=== PATIENT | female | born 1990 | race Two or more races ===

== ENCOUNTER → 2021-05-24 | Outpatient (REF) | payer BC | LOC: M WUC 18:30 | PROVIDERS: ATTEND Physician Assistant | DX: R30.0 Dysuria (principal) ==

== ENCOUNTER → 2021-07-17 | Outpatient (REF) | LOC: M EMP 13:23 | PROVIDERS: ATTEND Family Medicine | DX: Z11.52 Encounter for screening for COVID-19 (principal) ==

== ENCOUNTER 2022-03-04 15:37 | Outpatient (CLI) | payer OTHER ==
[~2022-03-04] VITALS: Ht 165.1 cm; Wt 77.4 kg
[~2022-03-04 15:37] MED LIST: ACET1TAB55 PO; CABE0.5T PO; CEPH500C; CEPH500C PO; ENDO100S PV; ESTR2TAB3 PO; MIRA1POW3 PO; OXYC-517 PO; PROG50IN5 SC; SIME80TA16 PO
[2022-03-04] MEDS ORDERED: PRENTAB9 PO (16:00)
[2022-03-04] MEDS ORDERED: ECOT81TA5 PO (16:00)
[2022-03-04 16:01] VITALS: BP 122/75
[2022-03-04] MEDS ORDERED: HOME MED LIST COMPLETE! XX SCH (16:05)
[2022-03-04 16:47] VITALS: BP 129/72
[2022-03-04 18:13] VITALS: BP 117/68
== END 2022-03-04 19:10 | disposition home or self-care (01) ==
LOC: M LDO 15:37 → MERGE 15:37 → M LDO 19:10
PROVIDERS: ATTEND Advanced Practice Midwife
DX: O26.893 Other specified pregnancy related conditions, third trimester (principal); R10.30 Lower abdominal pain, unspecified; O44.42 Low lying placenta NOS or without hemorrhage, second trimester; Z98.870 Personal history of in utero procedure during pregnancy; Z3A.19 19 weeks gestation of pregnancy
CPT/HCPCS: 76811; 76817; G0378; G0463

== ENCOUNTER → 2022-03-19 | Outpatient (CLI) | payer OTHER ==
[~2022-03-19] MED LIST changes: +ECOT81TA5 PO; +PRENTAB9 PO
== END ==
LOC: M WHC 14:03
PROVIDERS: ATTEND Obstetrics & Gynecology
DX: Z34.02 Encounter for supervision of normal first pregnancy, second trimester (principal)

== ENCOUNTER → 2022-04-21 | Outpatient (CLI) | payer OTHER | LOC: M WHC 15:13 | PROVIDERS: ATTEND Obstetrics & Gynecology | DX: Z36.2 Encounter for other antenatal screening follow-up (principal) ==

== ENCOUNTER → 2022-04-22 | Outpatient (REF) | payer OTHER ==
[2022-04-23 10:54] LABS: APPEARANCE, URINE MANUAL CLEAR (CLEAR); COLOR, URINE MANUAL YELLOW (YELLOW)
[2022-04-23 10:58] LABS: BILIRUBIN, URINE MANUAL NEGATIVE (NEGATIVE); BLOOD URINE MANUAL NEGATIVE (NEGATIVE); GLUCOSE, URINE (UA) MANUAL 4+(1000 MG/DL) mg/dL (NEGATIVE); KETONE, URINE MANUAL NEGATIVE (NEGATIVE); LEUKOCYTE ESTERASE, URINE MAN TRACE (NEGATIVE); NITRITE, URINE MANUAL NEGATIVE (NEGATIVE); PROTEIN, URINE MANUAL NEGATIVE (NEGATIVE); SPECIFIC GRAVITY,URINE MANUAL 1.021 (1.002-1.035); UROBILINOGEN, URINE MANUAL NORMAL (NORMAL)
[2022-04-23 11:09] LABS: BACTERIA, URINE SMALL AMOUNT; CALCIUM OXALATE CRYSTALS,URINE SMALL AMOUNT /hpf; HYALINE CAST, URINE NONE SEEN /lpf (0-1); RBC, URINE 0-1 /hpf (0-3); SQUAMOUS EPITHELIAL CELL URINE MOD AMOUNT /hpf (SMALL AMT)
== END ==
LOC: M SFHCPLAZ 10:02
PROVIDERS: ATTEND Family Medicine
DX: R60.0 Localized edema (principal)

== ENCOUNTER → 2022-05-06 | Outpatient (REF) | payer OTHER ==
[~2022-05-06] MED LIST changes: +NOXI1TAB PO
== END ==
LOC: M SFHCWAGY 16:48
PROVIDERS: ATTEND Obstetrics & Gynecology
DX: R35.0 Frequency of micturition (principal)
CPT/HCPCS: 81002; 87086; G0463

== ENCOUNTER 2022-05-14 16:10 | Outpatient (CLI) | payer OTHER ==
[~2022-05-14] VITALS: Ht 165.1 cm; Wt 83.9 kg
[~2022-05-14 16:10] MED LIST changes: -NOXI1TAB PO
[2022-05-14 16:22] VITALS: BP 133/72
[2022-05-14] MEDS ORDERED: NOXI1TAB PO (16:30)
[2022-05-14] MEDS ORDERED: AZITHROMYCIN 250MG TABLET PO ONE (17:15)
[2022-05-14] MEDS ORDERED: MAG Sulf (L&D) 4 GM/100 ML 4 GM in IV 1 EA IV ONE (17:20)
[2022-05-14] MEDS ORDERED: MAG Sulf (OBGYN) 20GM/500ML 20,000 MG in IV 1 EA IV SCH (17:20)
[2022-05-14] MEDS ORDERED: AMPICILLIN SOD 2 GM in D5W MINI-BAG PLUS 100 ML IV SCH (17:30)
[2022-05-14] MEDS ORDERED: BETAMETHASONE SOLUSPAN 6MG/ML 5ML VIAL IM SCH (18:00)
[2022-05-14 18:02] VITALS: BP 123/71
[2022-05-14 18:22] LABS: BASO % 0.2 % (0.0-1.0); EOS # 0.1 10^3/uL (0.0-0.5); EOS % 0.6 % (0.0-3.0); HEMATOCRIT 37.6 % (36.0-47.0); LYMPH # 1.7 10^3/uL (1.5-5.0); LYMPH % 19.6 % (24.0-44.0); MEAN CORPUSCULAR HEMOGLOBIN 30.1 pg (27.0-33.0); MEAN CORPUSCULAR HGB CONC 34.6 g/dl (32.0-36.5); MONO # 0.7 10^3/uL (0.0-0.8); MONO % 8.2 % (2.0-8.0); NEUTROPHILS # 6.1 10^3/uL (1.5-8.5); NEUTROPHILS % 71.1 % (36.0-66.0); PLATELET COUNT, AUTOMATED 232 10^3/uL (150-450); RED BLOOD COUNT 4.32 10^6/uL (4.00-5.40); WHITE BLOOD COUNT 8.6 10^3/uL (4.0-10.0)
[2022-05-14 18:31] VITALS: BP 123/69
[2022-05-14 18:41] LABS: ALBUMIN 2.6 G/DL (3.2-5.2); ALKALINE PHOSPHATASE 116 U/L (46-116); ALT/SGPT < 9 U/L (7.0-40); AST/SGOT 16 U/L (<34); BILIRUBIN,TOTAL 0.3 MG/DL (0.3-1.2); BLOOD UREA NITROGEN 10 MG/DL (9-23); CALCIUM LEVEL 9.4 MG/DL (8.5-10.1); CARBON DIOXIDE LEVEL 22 MMOL/L (20-31); CHLORIDE LEVEL 102 MMOL/L (98-107); CREATININE FOR GFR 0.46 MG/DL (0.55-1.30); GLOMERULAR FILTRATION RATE > 60.0 (>60); GLUCOSE, FASTING 188 MG/DL (60-100); POTASSIUM SERUM 4.3 MMOL/L (3.5-5.1); SODIUM LEVEL 134 MMOL/L (136-145); TOTAL PROTEIN 6.4 G/DL (5.7-8.2)
[2022-05-14 18:47] VITALS: BP 113/63
== END 2022-05-14 19:45 | disposition other institution (70) ==
LOC: M LDO 16:10
PROVIDERS: ATTEND Specialist
DX: O26.893 Other specified pregnancy related conditions, third trimester (principal); N89.8 Other specified noninflammatory disorders of vagina; R25.2 Cramp and spasm; O24.419 Gestational diabetes mellitus in pregnancy, unspecified control; Z98.870 Personal history of in utero procedure during pregnancy; Z3A.29 29 weeks gestation of pregnancy
CPT/HCPCS: 59025; 76815; 80053; 85025; 86850; 86900; 86901; 87635; 96365; 96367; 96372; G0463; J0290; J0702; J3475

== ENCOUNTER → 2022-11-06 | Outpatient (REF) | payer BC ==
[~2022-11-06] MED LIST changes: +NOXI1TAB PO
[2022-11-06 13:27] LABS: APPEARANCE, URINE HAZY (CLEAR); BACTERIA, URINE AUTO NEGATIVE (NEGATIVE); BILIRUBIN, URINE AUTO NEGATIVE (NEGATIVE); BLOOD, URINE BLOOD 1+ (NEGATIVE); COLOR, URINE YELLOW (YELLOW); GLUCOSE, URINE (UA) AUTO NEGATIVE (NEGATIVE); KETONE, URINE AUTO NEGATIVE (NEGATIVE); LEUKOCYTE ESTERASE, URINE AUTO 1+ (NEGATIVE); MUCUS, URINE SMALL (NEGATIVE); NITRITE, URINE AUTO NEGATIVE (NEGATIVE); PROTEIN, URINE AUTO 1+ mg/dL (NEGATIVE); RBC, URINE AUTO 15 /HPF (0-3); SPECIFIC GRAVITY URINE AUTO 1.016 (1.002-1.035); SQUAMOUS EPITHELIAL CELL UR AU 5 /HPF (0-6); UROBILINOGEN, URINE AUTO 0.2 mg/dL (0.0-2.0); WBC, URINE AUTO 17 /HPF (0-3)
== END ==
LOC: M LAB REF 12:25
PROVIDERS: ATTEND Physician Assistant
DX: N39.0 Urinary tract infection, site not specified (principal)